=== PATIENT | female | born 1990 | race African-American/Black ===

== ENCOUNTER 2019-11-24 21:31 | Emergency (ER) | payer OTHER ==
[~2019-11-24] VITALS: Ht 162.6 cm; Wt 56.7 kg
--- NOTE | 2019-11-24 21:40 | NUR ---
Dr. Bucio at bedside for MSE.
[2019-11-24] MEDS ORDERED: AZITHROMYCIN 250 MG TABLET PO ONE (21:45)
[2019-11-24] MEDS ORDERED: AZITHROMYCIN 250 MG TABLET ONE (21:47)
--- NOTE | 2019-11-24 21:48 | NUR ---
Patient discharged to home in stable conditon. Written and verbal after care instructions given. Patient verbalizes understanding of instructions. Pt ambulated out of ER with steady gait, no acute signs of distress, VSS, all belongings taken.
[2019-11-24 21:49] VITALS: BP 135/73
== END 2019-11-24 21:49 | disposition home or self-care (01) ==
LOC: ER 21:31
DX: J06.9 Acute upper respiratory infection, unspecified (principal)
CPT/HCPCS: A4663; Q0144

== ENCOUNTER 2021-03-26 19:52 | Emergency (ER) | payer OTHER ==
[~2021-03-26] VITALS: Ht 162.6 cm; Wt 56.7 kg
--- NOTE | 2021-03-26 20:00 | NUR ---
Patient arrived at the ER with c;o of chest tightness and back pain. Patient is 13 weeks .
--- NOTE | 2021-03-26 20:03 | NUR ---
Dr. Larios on bedside for MSE.
[2021-03-26] MEDS ORDERED: HYDR-4209 PO (20:23)
[2021-03-26 20:32] LABS: *BILIRUBIN,URIN NEGATIVE (NEGATIVE); *BLOOD, URINE NEGATIVE (NEGATIVE); *CLARITY,URINE CLEAR (CLEAR); *COLOR,URINE YELLOW (YELLOW); *KETONES,URINE NEGATIVE (NEGATIVE); *UROBILINOGEN,URINE 0.2 E.U./dl (NORMAL); LEUKOCYTE ESTERASE ,URINE NEGATIVE (NEGATIVE); NITRITE, URINE NEGATIVE (NEGATIVE); PH,URINE 6.5 (5.0-8.0); UGLUCOSE NEGATIVE (NEGATIVE)
[2021-03-26 20:39] VITALS: BP 116/85
--- NOTE | 2021-03-26 20:39 | NUR ---
Patient discharged to home in stable condition. Written and verbal after care instructions given. Patient verbalizes understanding of instructions. Stressed follow up or return to ER for worsening s/s. Patient ambulated from the ER with steady gait. All belongings with patient.
== END 2021-03-26 20:40 | disposition home or self-care (01) ==
LOC: ER 19:58
DX: O26.899 Other specified pregnancy related conditions, unspecified trimester (principal); M54.9 Dorsalgia, unspecified
CPT/HCPCS: A4663